=== PATIENT | male | born 1955 | race Caucasian/White ===

== ENCOUNTER 2023-09-06 02:00 | Emergency (ER) | payer MEDICARE ==
[~2023-09-06] VITALS: Ht 170.2 cm; Wt 65.0 kg
[2023-09-06 02:11] VITALS: O2SAT 98
[2023-09-06 02:26] LABS: BASOPHILS % 1.1 % (0.0-2.0); EOSINOPHILS % 5.8 % (0.0-5.0); HEMATOCRIT. 41.8 % (42.0-52.0); HEMOGLOBIN. 13.9 g/dL (14.0-18.0); LYMPHOCYTES % 26.3 % (20.0-50.0); MEAN CORPUSCULAR HEMOGLOBIN 30.5 pg (28.0-32.0); MEAN CORPUSCULAR HGB CONC 33.3 g/dL (31.0-37.0); MEAN CORPUSCULAR VOLUME 91.6 fL (80.0-94.0); MEAN PLATELET VOLUME 7.8 fl (7.4-10.4); MONOCYTES % 7.7 % (2.0-8.0); NEUTROPHILS % 59.1 % (40.0-76.0); PLATELET 250 x1000/uL (130-400); RED BLOOD CELL COUNT 4.56 mill/uL (4.7-6.1); RED CELL DISTRIBUTION WIDTH 13.4 % (11.6-14.6); WHITE BLOOD COUNT 9.4 x1000/uL (4.5-11.0)
[2023-09-06 02:31] LABS: CHLORIDE 106 mEq/L (98-107); POTASSIUM 3.7 mEq/L (3.5-5.1); SODIUM 138 mEq/L (136-145)
[2023-09-06 02:32] LABS: CARBON DIOXIDE 25 mEq/L (21-32)
[2023-09-06 02:33] LABS: CALCIUM 8.9 mg/dL (8.7-10.4)
[2023-09-06 02:37] LABS: CREATININE 1.3 mg/dL (0.6-1.3); GLUCOSE 106 mg/dL (70-105)
[2023-09-06 02:38] LABS: TROPONIN I HIGH SENSITIVITY 5 ng/L (3.0-53); UREA NITROGEN BLOOD 20 mg/dL (9-23)
[2023-09-06 03:01] VITALS: TEMP 98.2
[2023-09-06 03:07] LABS: ETHANOL BLOOD < 10 mg/dL (<10)
[2023-09-06] MEDS: ONDANSETRON 4MG ODT PO ONE (04:16)
[2023-09-06 04:58] LABS: TROPONIN I HIGH SENSITIVITY 4 ng/L (3.0-53)
[2023-09-06] MEDS ORDERED: ONDA4TAB50 MT (05:13)
[2023-09-06 05:59] VITALS: BP 101/56; PULSE 65; RESP 19
== END 2023-09-06 06:05 | disposition home or self-care (01) ==
LOC: ER 02:00
DX: R07.89 Other chest pain (principal); I25.2 Old myocardial infarction; Z79.82 Long term (current) use of aspirin; Z00.00 Encounter for general adult medical examination without abnormal findings
CPT/HCPCS: 80048; 80320; 83880; 85025; 84484; 36415; 71045; 93005; 99285; Q0162; G0480